=== PATIENT | male | born 1995 | race Hispanic/Latino ===

== ENCOUNTER 2021-04-27 05:50 | Day surgery (SDC) | payer OTHER ==
[~2021-04-27] VITALS: Ht 175.3 cm; Wt 108.9 kg
[~2021-04-27 05:50] MED LIST: ACET500P24 PO; FAMO1TAB29 PO; FLUT9.9S NS; PANT40TA54 PO
[2021-04-27] MEDS ORDERED: 0.9%NACL 1000ML 1,000 ML IV ONE (06:18)
[2021-04-27 06:53] VITALS: BP 123/67
[2021-04-27] MEDS ORDERED: FENTANYL CITRATE PF 50 MCG/1 ML 2ML VIAL ONE (07:23)
[2021-04-27] MEDS ORDERED: LIDOCAINE HCL 1% 20 ML VIAL ONE (07:23)
[2021-04-27] MEDS ORDERED: PROPOFOL 10 MG/ML 20ML VIAL IV ONE ×2 (07:23→07:32)
[2021-04-27] MEDS ORDERED: EPHEDRINE SULFATE 50 MG/ML AMPULE ONE (07:36)
[2021-04-27 07:48] VITALS: BP 100/40
[2021-04-27 07:53] VITALS: BP 115/61
[2021-04-27 07:58] VITALS: BP 118/55
[2021-04-27 08:03] VITALS: BP 110/57
== END 2021-04-27 08:10 | disposition home or self-care (01) ==
LOC: ENDO 05:50 → DAH 05:50 → ENDO 08:10
PROVIDERS: ATTEND Internal Medicine Gastroenterology
DX: R19.7 Diarrhea, unspecified (principal); Z20.822 Contact with and (suspected) exposure to COVID-19; R19.4 Change in bowel habit; K21.00 Gastro-esophageal reflux disease with esophagitis, without bleeding; K31.89 Other diseases of stomach and duodenum; Z79.899 Other long term (current) drug therapy; Z98.890 Other specified postprocedural states
CPT/HCPCS: 43239; 45380; 87635; A4215 ×2; A4221; A4222; A4223; A4606; A4620; A4657; A4663; C9803; J2704 ×2; J3010; J3490; J7030